=== PATIENT | male | born 1980 | race Caucasian/White ===

== ENCOUNTER → 2024-05-29 | Outpatient (CLI) | payer OTHER ==
[2024-05-29 15:47] LABS: BASO % 0.7 % (0.0-1.0); EOS # 0.1 10^3/uL (0.0-0.5); EOS % 1.4 % (0.0-3.0); HEMATOCRIT 41.1 % (42.0-52.0); HEMOGLOBIN 13.8 g/dl (13.5-17.5); LYMPH # 2.7 10^3/uL (1.5-5.0); LYMPH % 47.1 % (24.0-44.0); MEAN CORPUSCULAR HEMOGLOBIN 27.9 pg (27.0-33.0); MEAN CORPUSCULAR HGB CONC 33.6 g/dl (32.0-36.5); MEAN CORPUSCULAR VOLUME 83.2 fl (80.0-96.0); MONO # 0.5 10^3/uL (0.0-0.8); MONO % 8.8 % (2.0-8.0); NEUTROPHILS # 2.4 10^3/uL (1.5-8.5); PLATELET COUNT, AUTOMATED 163 10^3/uL (150-450); RED BLOOD COUNT 4.94 10^6/uL (4.30-6.10); WHITE BLOOD COUNT 5.7 10^3/uL (4.0-10.0)
[2024-05-29 15:58] LABS: ERYTHROCYTE SEDIMENTATION RATE 4 mm/hr (0-15)
[2024-05-29 16:19] LABS: IMMUNOGLOBULIN A 241.4 MG/DL (40-350); IMMUNOGLOBULIN G 687 MG/DL (650-1600)
[2024-05-29 16:21] LABS: IMMUNOGLOBULIN E 687.1 IU/ML (0-378)
[2024-06-04 17:29] LABS: STREP PNEUMO TYPE 1 0.1 ug/mL (>1.3); STREP PNEUMO TYPE 12F 0.1 ug/mL (>1.3); STREP PNEUMO TYPE 14 2.3 ug/mL (>1.3); STREP PNEUMO TYPE 18C 1.2 ug/mL (>1.3); STREP PNEUMO TYPE 19F 0.9 ug/mL (>1.3); STREP PNEUMO TYPE 23F < 0.1 ug/mL (>1.3); STREP PNEUMO TYPE 3 0.3 ug/mL (>1.3); STREP PNEUMO TYPE 4 0.2 ug/mL (>1.3); STREP PNEUMO TYPE 5 1.1 ug/mL (>1.3); STREP PNEUMO TYPE 6B 0.7 ug/mL (>1.3); STREP PNEUMO TYPE 7F 1.1 ug/mL (>1.3); STREP PNEUMO TYPE 8 6.6 ug/mL (>1.3); STREP PNEUMO TYPE 9N < 0.1 ug/mL (>1.3); STREP PNEUMO TYPE 9V 0.1 ug/mL (>1.3)
== END ==
LOC: M PLALAB 12:33
PROVIDERS: ATTEND Allergy & Immunology Allergy
DX: D84.9 Immunodeficiency, unspecified (principal)

== ENCOUNTER → 2024-07-16 | Outpatient (CLI) | payer OTHER | LOC: M LAB 14:07 | PROVIDERS: ATTEND Allergy & Immunology Allergy | DX: D84.9 Immunodeficiency, unspecified (principal) ==